=== PATIENT | female | born 1970 | race African-American/Black ===

== ENCOUNTER 2019-02-12 19:11 | Emergency (ER) | payer MEDICAID, OTHER ==
[~2019-02-12] VITALS: Ht 157.5 cm; Wt 65.5 kg
[~2019-02-12 19:11] MED LIST: CELEXA; NORCO 325 MG-7.1 TAB PO; TRAZODONE; ZIPRASIDONE
[2019-02-12 19:19] VITALS: BP 124/91; PULSE 95; TEMP 97.9
[2019-02-12] MEDS ORDERED: TRILEPTAL 150M150 MG PO ×2 (20:01→21:18)
[2019-02-12] MEDS ORDERED: NEURONTIN300 MG/CAP PO (20:02)
[2019-02-12] MEDS ORDERED: INDERAL 10MG10 MG PO ×2 (20:04→21:21)
[2019-02-12] MEDS ORDERED: COGENTIN 1MG1 MG/TAB PO ×2 (20:05→21:19)
[2019-02-12] MEDS ORDERED: FLONASEALLERGY NS (20:06)
[2019-02-12] MEDS ORDERED: CLARITIN 1010 MG/TAB PO (20:06)
[2019-02-12] MEDS ORDERED: VENTOLIN0.09 MG IH (20:07)
[2019-02-12] MEDS ORDERED: SINGULAIR 110 MG/TAB PO (20:07)
[2019-02-12] MEDS ORDERED: RT ADVAIR 128 DISKUS IH (20:08)
[2019-02-12 20:41] LABS: BASO % 0.6 % (0.0-2.0); EOS # 0.3 (0.0-0.7); EOS % 3.9 % (0-4.0); GRAN # 3.2 (1.4-6.5); GRAN % 50.9 % (42.2-75.2); LYMPH # 2.4 (1.2-3.4); LYMPH % 37.5 % (20.0-51.0); MEAN CELL VOLUME 80 fl (80.0-100.0); MEAN CORPUSCULAR HGB CONC 31 g/dl (33.0-37.0); MEAN PLATELET VOLUME 10.1 fl (7.4-10.4); MONO # 0.4 (0.1-0.6); MONO % 6.9 % (1.7-9.3); PLATELET COUNT 373 K/mm3 (130-400); RED BLOOD COUNT 3.76 M/mm3 (4.10-5.30); REDCELL DISTRIBUTION WIDTH-CV 16.6 % (11.5-14.5)
[2019-02-12 20:53] LABS: HEMATOCRIT 30.1 % (37.0-47.0); HEMOGLOBIN 9.4 g/dl (12.5-16.0); MEAN CORPUSCULAR HEMOGLOBIN 25 pg (27.0-31.0)
[2019-02-12 20:58] LABS: ALBUMIN 4.1 gm/dL (3.5-5.0); BILIRUBIN,TOTAL 0.2 mg/dL (0.0-1.0); CALCIUM 9.2 mg/dL (8.4-10.2); CREATININE, serum 0.69 (0.52-1.25); POTASSIUM 4.4 mmol/L (3.4-5.0); TOTAL PROTEIN 7.3 gm/dL (6.4-8.2)
[2019-02-12] MEDS ORDERED: CELEXA 20MG20 MG/TAB PO (21:19)
[2019-02-13] MEDS ORDERED: NEURONTIN300 MG/CAP PO (07:22)
[2019-02-13] MEDS ORDERED: FLONASEALLERGY NS (07:22)
[2019-02-13] MEDS ORDERED: PRILOSEC 20MG20 MG PO (07:22)
[2019-02-13] MEDS ORDERED: AMOXICILLIN 50500 MG PO (07:22)
[2019-02-13] MEDS ORDERED: SINGULAIR 110 MG/TAB PO (07:22)
[2019-02-13] MEDS ORDERED: ZOFRAN ODT4 MG PO (07:27)
== END 2019-02-12 21:40 | disposition home or self-care (01) ==
LOC: COL.ER 19:11
PROVIDERS: Emergency Medicine
DX: G24.01 Drug induced subacute dyskinesia (principal); I10 Essential (primary) hypertension; J44.9 Chronic obstructive pulmonary disease, unspecified; M79.7 Fibromyalgia; F31.9 Bipolar disorder, unspecified; F25.9 Schizoaffective disorder, unspecified; F17.210 Nicotine dependence, cigarettes, uncomplicated; Z79.51 Long term (current) use of inhaled steroids; Z90.89 Acquired absence of other organs; Z98.51 Tubal ligation status

== ENCOUNTER 2019-02-13 06:49 | Emergency (ER) | payer MEDICAID, OTHER ==
[~2019-02-13] VITALS: Ht 157.5 cm; Wt 65.9 kg
[~2019-02-13 06:49] MED LIST changes: +CELEXA 20MG20 MG/TAB PO; +CLARITIN 1010 MG/TAB PO; +COGENTIN 1MG1 MG/TAB PO; +FLONASEALLERGY NS; +INDERAL 10MG10 MG PO; +NEURONTIN300 MG/CAP PO; +RT ADVAIR 128 DISKUS IH; +SINGULAIR 110 MG/TAB PO; +TRILEPTAL 150M150 MG PO; +VENTOLIN0.09 MG IH
[2019-02-13 06:54] VITALS: BP 145/77; TEMP 97.5
[2019-02-13] MEDS ORDERED: PRILOSEC 20MG20 MG PO (07:22)
[2019-02-13] MEDS ORDERED: AMOXICILLIN 50500 MG PO (07:22)
[2019-02-13] MEDS ORDERED: NEURONTIN300 MG/CAP PO (07:22)
[2019-02-13] MEDS ORDERED: FLONASEALLERGY NS (07:22)
[2019-02-13] MEDS ORDERED: SINGULAIR 110 MG/TAB PO (07:22)
[2019-02-13] MEDS ORDERED: ZOFRAN ODT4 MG PO (07:27)
[2019-02-13 08:00] VITALS: PULSE 76
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
== END 2019-02-13 08:40 | disposition home or self-care (01) ==
LOC: COL.ER 06:49
DX: K02.9 Dental caries, unspecified (principal); Z98.84 Bariatric surgery status; Z88.8 Allergy status to other drugs, medicaments and biological substances; Z79.51 Long term (current) use of inhaled steroids
CPT/HCPCS: J1200; J1885

== ENCOUNTER 2019-03-05 17:12 | Emergency (ER) | payer OTHER ==
[~2019-03-05] VITALS: Ht 157.5 cm; Wt 69.8 kg
[~2019-03-05 17:12] MED LIST changes: +AMOXICILLIN 50500 MG PO; +PRILOSEC 20MG20 MG PO; +ZOFRAN ODT4 MG PO
[2019-03-05 17:22] VITALS: TEMP 98
[2019-03-05] MEDS ORDERED: ZITHROMAX Z PA250 MG PO (21:36)
[2019-03-05 22:15] LABS: BASO % 0.4 % (0.0-2.0); EOS # 0.3 (0.0-0.7); EOS % 3.9 % (0-4.0); GRAN # 3.5 (1.4-6.5); GRAN % 50.4 % (42.2-75.2); HEMATOCRIT 34.7 % (37.0-47.0); HEMOGLOBIN 10.5 g/dl (12.5-16.0); LYMPH # 2.5 (1.2-3.4); LYMPH % 36.6 % (20.0-51.0); MEAN CELL VOLUME 84 fl (80.0-100.0); MEAN CORPUSCULAR HEMOGLOBIN 25 pg (27.0-31.0); MEAN CORPUSCULAR HGB CONC 30 g/dl (33.0-37.0); MONO # 0.6 (0.1-0.6); MONO % 8.4 % (1.7-9.3); PLATELET COUNT 376 K/mm3 (130-400); RED BLOOD COUNT 4.14 M/mm3 (4.10-5.30); REDCELL DISTRIBUTION WIDTH-CV 22.5 % (11.5-14.5)
[2019-03-05 22:27] LABS: ALANINE AMINOTRANSFERASE 33 U/L (9-52); ALBUMIN 4.1 gm/dL (3.5-5.0); ALKALINE PHOSPHATASE 68 U/L (50-136); ANION GAP 11 mmol/L (7-16); AST,SGOT 43 U/L (15-37); BILIRUBIN,TOTAL 0.2 mg/dL (0.0-1.0); BLOOD UREA NITROGEN 15 mg/dL (7-17); CARBON DIOXIDE 24 mmol/L (22-30); CHLORIDE 103 mmol/L (98-107); GLUCOSE 188 mg/dL (74-106); POTASSIUM 3.9 mmol/L (3.4-5.0); SODIUM 138 mmol/L (137-145); TOTAL PROTEIN 7.6 gm/dL (6.4-8.2)
[2019-03-05 22:42] LABS: TROPONIN-I < 0.012 ng/mL (0.000-0.035)
[2019-03-05 22:42] LABS: COLLECTION METHOD CLEAN CATCH
[2019-03-05 23:01] LABS: MUCOUS Present /lpf; PH 7 (5-8); SQUAMOUS EPITHELIAL 0-2 /hpf; URINE APPEARANCE Clear; URINE BACTERIA Occasional /hpf; URINE BILIRUBIN Negative (NEGATIVE); URINE BLOOD Negative (NEGATIVE); URINE COLOR Yellow; URINE GLUCOSE Negative (NEGATIVE); URINE KETONE Negative (NEGATIVE); URINE LEUKOCYTE ESTERASE Negative (NEGATIVE); URINE NITRATE Negative (NEGATIVE); URINE PROTEIN(semi-quant) Negative (NEGATIVE); URINE RBC 0-2 /hpf; URINE UROBILINOGEN Negative (NEGATIVE)
[2019-03-05 23:15] VITALS: BP 133/96; PULSE 90
--- NOTE | 2019-03-06 10:14 | NUR ---
Patient was seen on 03/05/19, in the hospital by our financial counselor and health care social worker (Yuliya). Patient confirmed she has not been successful in housing assistance and being seen by Sandra. On this date, patient contacts this health care social worker and worker stresses that patient needs to make an appointment at [facility] and establish a primary care provider there to have her numerous stated medical conditions evaluated and treated and also to receive prescriptions. Patient is tearful and her speech is difficult to understand. Worker filed an APS report #[id number]. Patient states she will take a cab to [facility].
== END 2019-03-05 23:35 | disposition home or self-care (01) ==
LOC: COL.ER 17:12
PROVIDERS: Family Medicine
DX: J18.1 Lobar pneumonia, unspecified organism (principal); M19.90 Unspecified osteoarthritis, unspecified site; Z98.84 Bariatric surgery status
CPT/HCPCS: J0696; J1200; J3010

== ENCOUNTER 2019-03-23 11:41 | Emergency (ER) | payer OTHER ==
[~2019-03-23] VITALS: Ht 157.5 cm; Wt 70.7 kg
[~2019-03-23 11:41] MED LIST changes: +ZITHROMAX Z PA250 MG PO
[2019-03-23 11:56] VITALS: BP 111/90; PULSE 82; TEMP 97.8
[2019-03-23 14:00] LABS: BASO % 0.6 % (0.0-2.0); EOS # 0.2 (0.0-0.7); EOS % 4.8 % (0-4.0); GRAN % 59.4 % (42.2-75.2); HEMATOCRIT 38.7 % (37.0-47.0); HEMOGLOBIN 11.7 g/dl (12.5-16.0); LYMPH # 1.5 (1.2-3.4); LYMPH % 30.6 % (20.0-51.0); MEAN CELL VOLUME 84 fl (80.0-100.0); MEAN CORPUSCULAR HEMOGLOBIN 25 pg (27.0-31.0); MEAN CORPUSCULAR HGB CONC 30 g/dl (33.0-37.0); MEAN PLATELET VOLUME 11.3 fl (7.4-10.4); MONO # 0.2 (0.1-0.6); MONO % 4.2 % (1.7-9.3); PLATELET COUNT 304 K/mm3 (130-400); RED BLOOD COUNT 4.61 M/mm3 (4.10-5.30); REDCELL DISTRIBUTION WIDTH-CV 21.9 % (11.5-14.5)
[2019-03-23 14:31] LABS: COLLECTION METHOD CLEAN CATCH
[2019-03-23 14:38] LABS: PH 7 (5-8); SQUAMOUS EPITHELIAL 0-2 /hpf; URINE APPEARANCE Clear; URINE BACTERIA None Seen /hpf; URINE BILIRUBIN Negative (NEGATIVE); URINE BLOOD Negative (NEGATIVE); URINE COLOR Yellow; URINE GLUCOSE Negative (NEGATIVE); URINE KETONE Negative (NEGATIVE); URINE LEUKOCYTE ESTERASE Negative (NEGATIVE); URINE NITRATE Negative (NEGATIVE); URINE PROTEIN(semi-quant) Negative (NEGATIVE); URINE RBC 0-2 /hpf; URINE UROBILINOGEN Negative (NEGATIVE)
[2019-03-23 15:07] LABS: ALANINE AMINOTRANSFERASE 51 U/L (9-52); ALBUMIN 4.2 gm/dL (3.5-5.0); ALKALINE PHOSPHATASE 68 U/L (50-136); ANION GAP 8 mmol/L (7-16); AST,SGOT 74 U/L (15-37); BILIRUBIN,TOTAL 0.3 mg/dL (0.0-1.0); BLOOD UREA NITROGEN 21 mg/dL (7-17); CALCIUM 9.1 mg/dL (8.4-10.2); CARBON DIOXIDE 27 mmol/L (22-30); CHLORIDE 105 mmol/L (98-107); CREATININE, serum 0.73 (0.52-1.25); GLUCOSE 93 mg/dL (74-106); SODIUM 140 mmol/L (137-145); TOTAL PROTEIN 7.5 gm/dL (6.4-8.2)
[2019-03-23 15:17] LABS: TROPONIN-I < 0.012 ng/mL (0.000-0.035)
== END 2019-03-23 14:30 | disposition left against medical advice (07) ==
LOC: COL.ER 11:41
PROVIDERS: Emergency Medicine; Nurse Practitioner
DX: L84 Corns and callosities (principal); M54.9 Dorsalgia, unspecified; R07.9 Chest pain, unspecified; R05 Cough; J45.909 Unspecified asthma, uncomplicated; I10 Essential (primary) hypertension; F32.9 Major depressive disorder, single episode, unspecified; K21.9 Gastro-esophageal reflux disease without esophagitis; F17.210 Nicotine dependence, cigarettes, uncomplicated
CPT/HCPCS: J1885

== ENCOUNTER 2019-05-29 12:53 | Emergency (ER) | payer OTHER ==
[~2019-05-29] VITALS: Ht 157.5 cm; Wt 72.6 kg
[2019-05-29 13:05] VITALS: TEMP 97
[2019-05-29] MEDS ORDERED: INDERAL 10MG10 MG (13:28)
[2019-05-29] MEDS ORDERED: COGENTIN 1MG1 MG/TAB (13:28)
[2019-05-29] MEDS ORDERED: CELEXA10 MG (13:31)
[2019-05-29] MEDS ORDERED: NEURONTIN300 MG/CAP PO ×2 (13:31→14:38)
[2019-05-29] MEDS ORDERED: FLONASE NASAL S16 GM NS (13:31)
[2019-05-29] MEDS ORDERED: SINGULAIR 110 MG/TAB PO (13:31)
[2019-05-29] MEDS ORDERED: ALBUTEROL S0.4 MG/ML PO (13:32)
[2019-05-29] MEDS ORDERED: TRILEPTAL 150M150 MG (13:38)
[2019-05-29 14:26] LABS: BASO % 0.5 % (0.0-2.0); EOS # 0.2 (0.0-0.7); EOS % 5.8 % (0-4.0); GRAN # 1.9 (1.4-6.5); GRAN % 47.5 % (42.2-75.2); HEMATOCRIT 37.5 % (37.0-47.0); HEMOGLOBIN 11.6 g/dl (12.5-16.0); LYMPH # 1.5 (1.2-3.4); LYMPH % 38.6 % (20.0-51.0); MEAN CELL VOLUME 86 fl (80.0-100.0); MEAN CORPUSCULAR HEMOGLOBIN 27 pg (27.0-31.0); MEAN CORPUSCULAR HGB CONC 31 g/dl (33.0-37.0); MEAN PLATELET VOLUME 10.9 fl (7.4-10.4); MONO # 0.3 (0.1-0.6); MONO % 7.3 % (1.7-9.3); PLATELET COUNT 241 K/mm3 (130-400); RED BLOOD COUNT 4.34 M/mm3 (4.10-5.30); REDCELL DISTRIBUTION WIDTH-CV 15.7 % (11.5-14.5)
[2019-05-29] MEDS ORDERED: TRILEPTAL 150M150 MG PO (14:37)
[2019-05-29] MEDS ORDERED: COGENTIN 1MG1 MG/TAB PO (14:37)
[2019-05-29] MEDS ORDERED: CELEXA 20MG20 MG/TAB PO (14:37)
[2019-05-29] MEDS ORDERED: INDERAL 10MG10 MG PO (14:37)
[2019-05-29 14:41] LABS: ALBUMIN 4.1 gm/dL (3.5-5.0); BILIRUBIN,TOTAL 0.4 mg/dL (0.0-1.0); CALCIUM 9.6 mg/dL (8.4-10.2); CREATININE, serum 0.56 (0.52-1.25); TOTAL PROTEIN 7.2 gm/dL (6.4-8.2)
[2019-05-29] MEDS ORDERED: NORCO 325 MG-51 TAB PO (14:51)
[2019-05-29 15:03] VITALS: BP 133/92; PULSE 66
== END 2019-05-29 15:03 | disposition home or self-care (01) ==
LOC: COL.ER 12:53
PROVIDERS: Emergency Medicine
DX: M54.12 Radiculopathy, cervical region (principal); I10 Essential (primary) hypertension; F32.9 Major depressive disorder, single episode, unspecified; Z88.6 Allergy status to analgesic agent; Z88.8 Allergy status to other drugs, medicaments and biological substances; Z98.84 Bariatric surgery status; Z91.14 Patient's other noncompliance with medication regimen; Z79.51 Long term (current) use of inhaled steroids

== ENCOUNTER 2019-06-06 02:46 | Emergency (ER) | payer MEDICAID ==
[~2019-06-06] VITALS: Ht 157.5 cm; Wt 75.9 kg
[~2019-06-06 02:46] MED LIST changes: +ALBUTEROL S0.4 MG/ML PO; +CELEXA10 MG; +COGENTIN 1MG1 MG/TAB; +FLONASE NASAL S16 GM NS; +INDERAL 10MG10 MG; +NORCO 325 MG-51 TAB PO; +TRILEPTAL 150M150 MG
[2019-06-06 02:51] VITALS: TEMP 97.4
[2019-06-06 03:41] LABS: BASO % 0.9 % (0.0-2.0); EOS # 0.4 (0.0-0.7); EOS % 7.9 % (0-4.0); GRAN # 1.6 (1.4-6.5); GRAN % 35.4 % (42.2-75.2); HEMOGLOBIN 10.7 g/dl (12.5-16.0); LYMPH # 2.1 (1.2-3.4); MEAN CELL VOLUME 85 fl (80.0-100.0); MEAN CORPUSCULAR HEMOGLOBIN 27 pg (27.0-31.0); MEAN CORPUSCULAR HGB CONC 32 g/dl (33.0-37.0); MEAN PLATELET VOLUME 10.1 fl (7.4-10.4); MONO # 0.4 (0.1-0.6); MONO % 8.6 % (1.7-9.3); PLATELET COUNT 244 K/mm3 (130-400); RED BLOOD COUNT 3.98 M/mm3 (4.10-5.30); REDCELL DISTRIBUTION WIDTH-CV 15.4 % (11.5-14.5)
[2019-06-06 03:49] LABS: HEMATOCRIT 33.7 % (37.0-47.0)
[2019-06-06 03:51] LABS: ALANINE AMINOTRANSFERASE 50 U/L (4-34); ALBUMIN 3.7 gm/dL (3.5-5.0); ALKALINE PHOSPHATASE 60 U/L (50-136); ANION GAP 6 mmol/L (7-16); AST,SGOT 54 U/L (15-37); BILIRUBIN,TOTAL 0.3 mg/dL (0.0-1.0); BLOOD UREA NITROGEN 10 mg/dL (7-17); CALCIUM 9.3 mg/dL (8.4-10.2); CARBON DIOXIDE 26 mmol/L (22-30); CHLORIDE 106 mmol/L (98-107); CREATININE, serum 0.68 (0.52-1.25); GLUCOSE 80 mg/dL (74-106); INR 0.9 (0.8-3.0); POTASSIUM 4.4 mmol/L (3.4-5.0); SODIUM 138 mmol/L (137-145); TOTAL PROTEIN 6.6 gm/dL (6.4-8.2)
[2019-06-06] MEDS ORDERED: PROAIR HFA0.09 MG/AC IH (04:01)
[2019-06-06 04:04] LABS: TROPONIN-I < 0.012 ng/mL (0.000-0.035)
[2019-06-06] MEDS ORDERED: INDERAL 10MG10 MG PO (04:04)
[2019-06-06 06:30] VITALS: BP 107/86; PULSE 76
[2019-06-07] MEDS ORDERED: FLEXERIL 1010 MG/TAB PO (12:29)
[2019-06-07] MEDS ORDERED: LIDODERM 5% PATC1 EA TP (12:29)
== END 2019-06-06 06:30 | disposition home or self-care (01) ==
LOC: COL.ER 02:46
PROVIDERS: Emergency Medicine
DX: R07.89 Other chest pain (principal); R10.10 Upper abdominal pain, unspecified; I10 Essential (primary) hypertension; J44.9 Chronic obstructive pulmonary disease, unspecified; M79.7 Fibromyalgia; F31.9 Bipolar disorder, unspecified; F20.9 Schizophrenia, unspecified; M19.012 Primary osteoarthritis, left shoulder; F17.210 Nicotine dependence, cigarettes, uncomplicated
CPT/HCPCS: C9113; J2270; J3010; J7030; Q9967

== ENCOUNTER 2019-11-29 13:30 | Emergency (ER) | payer MEDICAID ==
[~2019-11-29] VITALS: Ht 157.5 cm; Wt 68.2 kg
[~2019-11-29 13:30] MED LIST changes: +CALCIUM CARBON650 M2 PO; +FLEXERIL 1010 MG/TAB PO; +GOOD NEIGHBOR P1 CRE TP; +IRON TABLETS325 MG PO; +LIDODERM 5% PATC1 EA TP; +MELATONIN5 M1 SL; +METAMUCIL3.4 GM/DOS PO; +NATURAL MAGNES200 MG PO; +PRENATAL TABLET PO; +PRIL40 PO; +PROAIR HFA0.09 MG/AC IH; +TURMERIC500 MG PO
[2019-11-29 13:41] VITALS: TEMP 97
--- NOTE | 2019-11-29 14:24 | NUR ---
Director Process Engineering responded to consult in the ED for patient. HARESH collaborated with HARESH Stafford who advised patient had been signed up for Community Care Team at one point. HARESH met with patient who reports she has an apartment in [place] and provided address on facesheet. Patient states she is staying with her mother, Stefany Garza for right now. Patient reports her primary care physician is Nydia Russo at [facility]. HARESH Stafford sent email to Sonia, Patient Coordinator at [facility] to inquire about the last time patient was seen. Patient states she has an appointment coming up with a Dr. Stack at [facility] on the and states she has a Stem Roller Or Crusher Operator named Sherrie. Patient states she needs to see Dr. Ford because she needs to have her medications refilled. Patient states she normally gets her medications from [facility] in [facility] but today would like them sent to [facility]. Patient denies any issues obtaining her medications or paying for them. Patient reports she is here for tooth pain and states she has tooth decay. Patient reports she has an appointment next month at [facility]. HARESH contacted Adilia at [facility] who advised they tried to schedule an appointment with patient yesterday but patient didn't make one. HARESH scheduled an appointment for 12/24/19 @ [address] Marie for an extraction. Adilia advised they also have her on the cancellation list. HARESH contacted the [facility] and was advised patient has not been seen by Nydia Russo since July. Patient does have an appointment coming up on 12/11/19. HARESH provided update and appointments to Cade FRAZIER. No additional needs identified at this time, HARESH will continue to follow as needed.
[2019-11-29] MEDS ORDERED: PREDNISONE20 MG PO (15:10)
[2019-11-29] MEDS ORDERED: NEB MC (15:10)
[2019-11-29] MEDS ORDERED: AMOXICILLIN 8751 TAB PO (15:10)
[2019-11-29] MEDS ORDERED: ALBUTEROL0.83 MG/ML IH (15:10)
[2019-11-29] MEDS ORDERED: COGENTIN 1MG1 MG/TAB PO (15:12)
[2019-11-29] MEDS ORDERED: TRILEPTAL 150M150 MG PO ×2 (15:12)
[2019-11-29] MEDS ORDERED: INDERAL 10MG10 MG PO (15:12)
[2019-11-29 15:45] VITALS: BP 164/99; PULSE 67
--- NOTE | 2019-11-30 11:47 | NUR ---
Metal Extrusion Supervisor received follow up response from Qi at [facility]. Patient's case management services were discontinued due to non compliance.
== END 2019-11-29 15:45 | disposition home or self-care (01) ==
LOC: COL.ER 13:30
DX: K08.89 Other specified disorders of teeth and supporting structures (principal); J44.1 Chronic obstructive pulmonary disease with (acute) exacerbation; J98.11 Atelectasis; F17.210 Nicotine dependence, cigarettes, uncomplicated; F41.9 Anxiety disorder, unspecified; Z76.0 Encounter for issue of repeat prescription
CPT/HCPCS: J1885

== ENCOUNTER 2019-12-07 18:52 | Emergency (ER) | payer MEDICAID ==
[~2019-12-07] VITALS: Ht 157.5 cm; Wt 70.5 kg
[~2019-12-07 18:52] MED LIST changes: +ALBUTEROL0.83 MG/ML IH; +AMOXICILLIN 8751 TAB PO; +NEB MC; +PREDNISONE20 MG PO
[2019-12-07 21:26] LABS: COLLECTION METHOD CLEAN CATCH
[2019-12-07 21:28] LABS: BASO % 0.4 % (0.0-2.0); EOS % 0.7 % (0-4.0); GRAN # 3.8 (1.4-6.5); GRAN % 67.5 % (42.2-75.2); HEMOGLOBIN 11.1 g/dl (12.5-16.0); LYMPH # 1.4 (1.2-3.4); LYMPH % 25.4 % (20.0-51.0); MEAN CELL VOLUME 91 fl (80.0-100.0); MEAN CORPUSCULAR HEMOGLOBIN 29 pg (27.0-31.0); MEAN CORPUSCULAR HGB CONC 31 g/dl (33.0-37.0); MEAN PLATELET VOLUME 10.9 fl (7.4-10.4); MONO # 0.3 (0.1-0.6); MONO % 5.5 % (1.7-9.3); PLATELET COUNT 298 K/mm3 (130-400); REDCELL DISTRIBUTION WIDTH-CV 16.2 % (11.5-14.5)
[2019-12-07 21:33] LABS: MUCOUS Present /lpf; PH 6 (5-8); SQUAMOUS EPITHELIAL 0-2 /hpf; URINE APPEARANCE Hazy; URINE BACTERIA None Seen /hpf; URINE BILIRUBIN Negative (NEGATIVE); URINE BLOOD Negative (NEGATIVE); URINE COLOR Amber; URINE GLUCOSE Negative (NEGATIVE); URINE KETONE Negative (NEGATIVE); URINE LEUKOCYTE ESTERASE Negative (NEGATIVE); URINE NITRATE Positive (NEGATIVE); URINE PROTEIN(semi-quant) Negative (NEGATIVE); URINE RBC 0-2 /hpf
[2019-12-07 21:41] LABS: HEMATOCRIT 35.5 % (37.0-47.0)
[2019-12-07 21:43] LABS: ALANINE AMINOTRANSFERASE 52 U/L (4-34); ALBUMIN 4.1 gm/dL (3.5-5.0); ALKALINE PHOSPHATASE 64 U/L (50-136); ANION GAP 5 mmol/L (7-16); AST,SGOT 46 U/L (15-37); BILIRUBIN,TOTAL 0.4 mg/dL (0.0-1.0); BLOOD UREA NITROGEN 10 mg/dL (7-17); CALCIUM 8.2 mg/dL (8.4-10.2); CARBON DIOXIDE 29 mmol/L (22-30); CHLORIDE 106 mmol/L (98-107); CREATININE, serum 0.61 (0.52-1.25); GLUCOSE 97 mg/dL (74-106); LIPASE 100 U/L (23-300); POTASSIUM 4.3 mmol/L (3.4-5.0); SODIUM 139 mmol/L (137-145)
[2019-12-07 21:47] LABS: C-REACTIVE PROTEIN < 0.5 mg/dL (0.0-0.9)
[2019-12-07 22:00] LABS: TROPONIN-I < 0.012 ng/mL (0.000-0.035)
[2019-12-08 00:11] VITALS: BP 140/94; PULSE 77; TEMP 97.8
[2019-12-08] MEDS ORDERED: TESSALON PERLE200 MG PO (01:01)
== END 2019-12-08 00:58 | disposition home or self-care (01) ==
LOC: COL.ER 18:52
PROVIDERS: Emergency Medicine
DX: R05 Cough (principal); R07.9 Chest pain, unspecified; J45.909 Unspecified asthma, uncomplicated; J18.1 Lobar pneumonia, unspecified organism; F32.9 Major depressive disorder, single episode, unspecified; F17.210 Nicotine dependence, cigarettes, uncomplicated; Z20.828 Contact with and (suspected) exposure to other viral communicable diseases; Z79.51 Long term (current) use of inhaled steroids
CPT/HCPCS: J3010; J7030; Q9967

== ENCOUNTER 2019-12-10 19:41 | Emergency (ER) | payer MEDICAID ==
[~2019-12-10] VITALS: Ht 157.5 cm; Wt 77.2 kg
[~2019-12-10 19:41] MED LIST changes: +TESSALON PERLE200 MG PO
[2019-12-10 20:06] VITALS: TEMP 97.5
[2019-12-10 22:55] LABS: BASO # 0.1 (0.0-0.2); BASO % 0.7 % (0.0-2.0); EOS # 0.4 (0.0-0.7); EOS % 5.5 % (0-4.0); GRAN # 3.5 (1.4-6.5); GRAN % 51.5 % (42.2-75.2); HEMOGLOBIN 10.8 g/dl (12.5-16.0); LYMPH # 2.4 (1.2-3.4); LYMPH % 35.5 % (20.0-51.0); MEAN CELL VOLUME 89 fl (80.0-100.0); MEAN CORPUSCULAR HEMOGLOBIN 28 pg (27.0-31.0); MEAN CORPUSCULAR HGB CONC 32 g/dl (33.0-37.0); MEAN PLATELET VOLUME 11.1 fl (7.4-10.4); MONO # 0.5 (0.1-0.6); MONO % 6.7 % (1.7-9.3); PLATELET COUNT 307 K/mm3 (130-400); RED BLOOD COUNT 3.87 M/mm3 (4.10-5.30)
[2019-12-10 22:59] LABS: ALBUMIN 4.1 gm/dL (3.5-5.0); BILIRUBIN,TOTAL 0.4 mg/dL (0.0-1.0); CALCIUM 9.8 mg/dL (8.4-10.2); CREATININE, serum 0.69 (0.52-1.25); POTASSIUM 4.2 mmol/L (3.4-5.0)
[2019-12-10 23:10] LABS: HEMATOCRIT 34.3 % (37.0-47.0)
[2019-12-10 23:18] LABS: COLLECTION METHOD CLEAN CATCH
[2019-12-10 23:23] LABS: PH 5 (5-8); SQUAMOUS EPITHELIAL 0-2 /hpf; URINE APPEARANCE Hazy; URINE BACTERIA None Seen /hpf; URINE BILIRUBIN Negative (NEGATIVE); URINE BLOOD Negative (NEGATIVE); URINE COLOR Yellow; URINE GLUCOSE Negative (NEGATIVE); URINE KETONE Negative (NEGATIVE); URINE LEUKOCYTE ESTERASE Negative (NEGATIVE); URINE NITRATE Negative (NEGATIVE); URINE PROTEIN(semi-quant) Negative (NEGATIVE); URINE RBC 0-2 /hpf; URINE UROBILINOGEN Negative (NEGATIVE)
[2019-12-10] MEDS ORDERED: DOXYCYCLINE 10100 MG PO (23:45)
[2019-12-10] MEDS ORDERED: ZOFRAN 4MG T4 MG/TAB PO (23:46)
[2019-12-11 00:44] VITALS: BP 142/85; PULSE 60
== END 2019-12-11 00:44 | disposition home or self-care (01) ==
LOC: COL.ER 19:41
PROVIDERS: Emergency Medicine
DX: N89.8 Other specified noninflammatory disorders of vagina (principal); F45.0 Somatization disorder; Z32.02 Encounter for pregnancy test, result negative; Z98.84 Bariatric surgery status; Z88.8 Allergy status to other drugs, medicaments and biological substances
CPT/HCPCS: J0696

== ENCOUNTER 2020-01-24 14:29 | Emergency (ER) | payer MEDICAID ==
[~2020-01-24] VITALS: Ht 157.5 cm; Wt 68.2 kg
[~2020-01-24 14:29] MED LIST changes: +DOXYCYCLINE 10100 MG PO; +ZOFRAN 4MG T4 MG/TAB PO
[2020-01-24 14:51] VITALS: TEMP 97.8
[2020-01-24 17:13] LABS: COLLECTION METHOD CLEAN CATCH
[2020-01-24 17:20] LABS: PH 7 (5-8); URINE APPEARANCE Clear; URINE BACTERIA None Seen /hpf; URINE BILIRUBIN Negative (NEGATIVE); URINE BLOOD Negative (NEGATIVE); URINE COLOR Straw; URINE GLUCOSE Negative (NEGATIVE); URINE KETONE Negative (NEGATIVE); URINE LEUKOCYTE ESTERASE Negative (NEGATIVE); URINE NITRATE Negative (NEGATIVE); URINE PROTEIN(semi-quant) Negative (NEGATIVE); URINE RBC 0-2 /hpf; URINE UROBILINOGEN Negative (NEGATIVE)
[2020-01-24] MEDS ORDERED: ANTIVERT 25MG25 MG PO (17:39)
[2020-01-24 17:40] LABS: HEMATOCRIT 38.9 % (37.0-47.0); HEMOGLOBIN 12.3 g/dl (12.5-16.0); MEAN CELL VOLUME 90 fl (80.0-100.0); MEAN CORPUSCULAR HEMOGLOBIN 29 pg (27.0-31.0); MEAN CORPUSCULAR HGB CONC 32 g/dl (33.0-37.0); MEAN PLATELET VOLUME 11.8 fl (7.4-10.4); PLATELET COUNT 218 K/mm3 (130-400); RED BLOOD COUNT 4.31 M/mm3 (4.10-5.30); REDCELL DISTRIBUTION WIDTH-CV 14.5 % (11.5-14.5)
[2020-01-24 17:49] VITALS: BP 157/93
[2020-01-24 17:49] LABS: ALANINE AMINOTRANSFERASE 43 U/L (4-34); ALBUMIN 4.4 gm/dL (3.5-5.0); ALKALINE PHOSPHATASE 63 U/L (50-136); ANION GAP 5 mmol/L (7-16); AST,SGOT 45 U/L (15-37); BILIRUBIN,TOTAL 0.5 mg/dL (0.0-1.0); BLOOD UREA NITROGEN 15 mg/dL (7-17); CALCIUM 9.2 mg/dL (8.4-10.2); CARBON DIOXIDE 27 mmol/L (22-30); CHLORIDE 106 mmol/L (98-107); CREATININE, serum 0.68 (0.52-1.25); GLUCOSE 78 mg/dL (74-106); POTASSIUM 4.6 mmol/L (3.4-5.0); SODIUM 138 mmol/L (137-145); TOTAL PROTEIN 7.6 gm/dL (6.4-8.2)
[2020-01-24 17:57] LABS: C-REACTIVE PROTEIN < 0.5 mg/dL (0.0-0.9)
[2020-01-24 17:59] LABS: TROPONIN-I < 0.012 ng/mL (0.000-0.035)
[2020-01-24] MEDS ORDERED: FLEXERIL 1010 MG/TAB PO (18:35)
[2020-01-24 18:51] LABS: EOSINOPHIL 5 % (0-4); LYMPHOCYTE 36 % (20.0-51.0); NEUTROPHILS 50 % (42.0-75.2)
[2020-01-24 18:52] LABS: HYPOCHROMIA 2+
[2020-01-24 18:53] LABS: PLATELET ESTIMATE NORMAL (NORMAL)
[2020-01-24 19:07] VITALS: PULSE 59
== END 2020-01-24 19:07 | disposition home or self-care (01) ==
LOC: COL.ER 14:29
PROVIDERS: Emergency Medicine
DX: R42 Dizziness and giddiness (principal); F45.0 Somatization disorder; F17.200 Nicotine dependence, unspecified, uncomplicated; Z98.84 Bariatric surgery status; Z88.8 Allergy status to other drugs, medicaments and biological substances
CPT/HCPCS: J2060; J2405; J7030

== ENCOUNTER 2020-01-28 06:21 | Emergency (ER) | payer MEDICAID ==
[~2020-01-28] VITALS: Ht 157.5 cm; Wt 79.5 kg
[~2020-01-28 06:21] MED LIST changes: +ANTIVERT 25MG25 MG PO
[2020-01-28 06:25] VITALS: TEMP 97.7
[2020-01-28 07:55] LABS: BASO % 0.7 % (0.0-2.0); EOS # 0.4 (0.0-0.7); EOS % 6.6 % (0-4.0); GRAN # 3.1 (1.4-6.5); GRAN % 53.5 % (42.2-75.2); HEMOGLOBIN 11.5 g/dl (12.5-16.0); LYMPH # 1.8 (1.2-3.4); LYMPH % 30.7 % (20.0-51.0); MEAN CELL VOLUME 88 fl (80.0-100.0); MEAN CORPUSCULAR HEMOGLOBIN 28 pg (27.0-31.0); MEAN CORPUSCULAR HGB CONC 32 g/dl (33.0-37.0); MEAN PLATELET VOLUME 11.2 fl (7.4-10.4); MONO # 0.5 (0.1-0.6); MONO % 8.3 % (1.7-9.3); PLATELET COUNT 238 K/mm3 (130-400); RED BLOOD COUNT 4.08 M/mm3 (4.10-5.30); REDCELL DISTRIBUTION WIDTH-CV 14.5 % (11.5-14.5)
[2020-01-28 07:56] LABS: HEMATOCRIT 35.8 % (37.0-47.0)
[2020-01-28 08:10] LABS: ALANINE AMINOTRANSFERASE 34 U/L (4-34); ALBUMIN 4.3 gm/dL (3.5-5.0); ALKALINE PHOSPHATASE 60 U/L (50-136); ANION GAP 5 mmol/L (7-16); AST,SGOT 39 U/L (15-37); BILIRUBIN,TOTAL 0.4 mg/dL (0.0-1.0); BLOOD UREA NITROGEN 19 mg/dL (7-17); CALCIUM 9.4 mg/dL (8.4-10.2); CARBON DIOXIDE 27 mmol/L (22-30); CHLORIDE 105 mmol/L (98-107); CREATININE, serum 0.73 (0.52-1.25); GLUCOSE 86 mg/dL (74-106); LIPASE 69 U/L (23-300); MAGNESIUM 2.1 mg/dL (1.6-2.3); POTASSIUM 4.2 mmol/L (3.4-5.0); SODIUM 137 mmol/L (137-145); TOTAL PROTEIN 7.3 gm/dL (6.4-8.2)
[2020-01-28 08:14] LABS: ACETAMINOPHEN < 10 ug/mL (10-30); ALCOHOL(ethanol),MEDICAL < 10 mg/dL; C-REACTIVE PROTEIN < 0.5 mg/dL (0.0-0.9)
[2020-01-28 10:03] LABS: COLLECTION METHOD CLEAN CATCH
[2020-01-28 10:22] LABS: PH 7 (5-8); SQUAMOUS EPITHELIAL None Seen /hpf; URINE APPEARANCE Clear; URINE BACTERIA None Seen /hpf; URINE BILIRUBIN Negative (NEGATIVE); URINE BLOOD Negative (NEGATIVE); URINE COLOR Straw; URINE GLUCOSE Negative (NEGATIVE); URINE KETONE Negative (NEGATIVE); URINE LEUKOCYTE ESTERASE Negative (NEGATIVE); URINE NITRATE Negative (NEGATIVE); URINE PROTEIN(semi-quant) Negative (NEGATIVE); URINE RBC 0-2 /hpf; URINE UROBILINOGEN Negative (NEGATIVE)
[2020-01-28 11:18] VITALS: BP 115/68; PULSE 63
== END 2020-01-28 12:20 | disposition home or self-care (01) ==
LOC: COL.ER 06:21
PROVIDERS: Emergency Medicine
DX: R10.2 Pelvic and perineal pain (principal); F41.9 Anxiety disorder, unspecified; M79.7 Fibromyalgia; Z90.49 Acquired absence of other specified parts of digestive tract; Z88.8 Allergy status to other drugs, medicaments and biological substances
CPT/HCPCS: J3010

== ENCOUNTER 2020-01-30 11:30 | Emergency (ER) | payer MEDICAID ==
[~2020-01-30] VITALS: Ht 157.5 cm; Wt 78.2 kg
[2020-01-30 11:36] VITALS: TEMP 96.9
[2020-01-30 12:45] VITALS: BP 137/80; PULSE 88
[2020-01-30 12:46] LABS: BASO % 0.6 % (0.0-2.0); EOS # 0.3 (0.0-0.7); EOS % 6.4 % (0-4.0); GRAN # 2.9 (1.4-6.5); GRAN % 56.6 % (42.2-75.2); HEMATOCRIT 39.5 % (37.0-47.0); HEMOGLOBIN 12.6 g/dl (12.5-16.0); LYMPH # 1.5 (1.2-3.4); MEAN CELL VOLUME 89 fl (80.0-100.0); MEAN CORPUSCULAR HEMOGLOBIN 28 pg (27.0-31.0); MEAN CORPUSCULAR HGB CONC 32 g/dl (33.0-37.0); MEAN PLATELET VOLUME 11.5 fl (7.4-10.4); MONO # 0.4 (0.1-0.6); PLATELET COUNT 236 K/mm3 (130-400); RED BLOOD COUNT 4.46 M/mm3 (4.10-5.30); REDCELL DISTRIBUTION WIDTH-CV 14.1 % (11.5-14.5)
[2020-01-30 13:00] LABS: ALANINE AMINOTRANSFERASE 37 U/L (4-34); ALBUMIN 4.6 gm/dL (3.5-5.0); ALKALINE PHOSPHATASE 71 U/L (50-136); ANION GAP 6 mmol/L (7-16); AST,SGOT 48 U/L (15-37); BILIRUBIN,TOTAL 0.8 mg/dL (0.0-1.0); BLOOD UREA NITROGEN 14 mg/dL (7-17); CALCIUM 9.8 mg/dL (8.4-10.2); CARBON DIOXIDE 29 mmol/L (22-30); CHLORIDE 103 mmol/L (98-107); GLUCOSE 90 mg/dL (74-106); POTASSIUM 4.1 mmol/L (3.4-5.0); SODIUM 138 mmol/L (137-145)
[2020-01-30 13:07] LABS: C-REACTIVE PROTEIN < 0.5 mg/dL (0.0-0.9)
--- NOTE | 2020-01-30 14:17 | NUR ---
HARESH responded to consult and met with the patient. The patient presented to the ED with pelvic pain and recent falls. She was eating her lunch. During intake, the patient's speech was erratic. The patient states that she has been dizzy lately and having some falls. The patient was seen in the ED in November and she had an appointment with her provider, Nydia Russo, at [facility] on 12/10. The patient states that she did go to this appointment, but that she does not like Nydia Russo. She states that she wants a new provider and set up with one soon, so that she can be connected to her specialists. The patient states that no one takes her Medicaid [employer] and that she still not not have an I.D. The patient states that she would have to make an appointment at the [facility] and that she does not want to wait for one. HARESH then stepped out of the patient's room to update her RN and to contact the different clinics for a new provider. The patient then asked her RN and provider for her discharge paperwork and wanted to leave. HARESH had contacted [facility]. They do not take the patient's insurance. HARESH contacted [facility]. The retail center receptionist at [facility] reports that they do take the patient's insurance and transferred HARESH to Dr. Jordan's RN. HARESH left her a voicemail. The patient was waiting in the hallway. HARESH met with the patient to update. The patient states that HARESH can contact her with the appointment. She states her phone number is [phone]. The patient then informed HARESH that she feels like her food is not going down and that she is dizzy. HARESH notified the patient's RN and the PA. The patient's RN and the PA offered the patient to return to her room and to continue her treatment. The RN informed her how they could give her a Zofran. The patient then asked if she could get a pain pill and a prescription for pain pills. The RN and PA informed the patient that she would not be getting a pain pill or a prescription for one. The patient refused the Zofran and wanted to leave. HARESH made an APS report. Intake ID#[id number].
== END 2020-01-30 13:46 | disposition home or self-care (01) ==
LOC: COL.ER 11:30
PROVIDERS: Physician Assistant
DX: R10.2 Pelvic and perineal pain (principal); R42 Dizziness and giddiness; G89.29 Other chronic pain; F31.9 Bipolar disorder, unspecified; F41.9 Anxiety disorder, unspecified; F17.200 Nicotine dependence, unspecified, uncomplicated; Z90.49 Acquired absence of other specified parts of digestive tract; Z98.84 Bariatric surgery status; Z91.81 History of falling; Z88.8 Allergy status to other drugs, medicaments and biological substances; Z79.899 Other long term (current) drug therapy

== ENCOUNTER 2020-05-15 09:01 | Emergency (ER) | payer MEDICAID ==
[~2020-05-15] VITALS: Ht 157.5 cm; Wt 77.3 kg
[2020-05-15 10:27] LABS: BASO % 0.9 % (0.0-2.0); EOS # 0.2 (0.0-0.7); EOS % 4.9 % (0-4.0); GRAN # 2.2 (1.4-6.5); LYMPH # 1.7 (1.2-3.4); LYMPH % 38.1 % (20.0-51.0); MEAN CELL VOLUME 88 fl (80.0-100.0); MEAN CORPUSCULAR HGB CONC 32 g/dl (33.0-37.0); MEAN PLATELET VOLUME 10.1 fl (7.4-10.4); MONO # 0.3 (0.1-0.6); MONO % 7.1 % (1.7-9.3); PLATELET COUNT 318 K/mm3 (130-400); RED BLOOD COUNT 3.53 M/mm3 (4.10-5.30); REDCELL DISTRIBUTION WIDTH-CV 15.3 % (11.5-14.5)
[2020-05-15 10:29] LABS: HEMOGLOBIN 9.8 g/dl (12.5-16.0); MEAN CORPUSCULAR HEMOGLOBIN 28 pg (27.0-31.0)
[2020-05-15 10:32] LABS: ALANINE AMINOTRANSFERASE 14 U/L (4-34); ALBUMIN 3.3 gm/dL (3.5-5.0); ALKALINE PHOSPHATASE 57 U/L (50-136); ANION GAP 4 mmol/L (7-16); AST,SGOT 29 U/L (15-37); BILIRUBIN,TOTAL 0.3 mg/dL (0.0-1.0); BLOOD UREA NITROGEN 15 mg/dL (7-17); CALCIUM 8.6 mg/dL (8.4-10.2); CARBON DIOXIDE 25 mmol/L (22-30); CHLORIDE 107 mmol/L (98-107); CREATININE, serum 0.81 (0.52-1.25); GLUCOSE 99 mg/dL (74-106); LIPASE 120 U/L (23-300); POTASSIUM 4.3 mmol/L (3.4-5.0); SODIUM 137 mmol/L (137-145); TOTAL PROTEIN 6.1 gm/dL (6.4-8.2)
[2020-05-15 10:56] LABS: TROPONIN-I < 0.012 ng/mL (0.000-0.035)
[2020-05-15] MEDS ORDERED: ULTRAM 50MG TAB50 MG PO (11:26)
[2020-05-15] MEDS ORDERED: PROAIR HFA0.09 MG/AC IH (11:26)
[2020-05-15] MEDS ORDERED: SINGULAIR 110 MG/TAB PO (11:26)
[2020-05-15] MEDS ORDERED: AMOXICILLIN 8751 TAB PO (11:31)
[2020-05-15 11:38] VITALS: BP 129/83; PULSE 76; TEMP 97.8
== END 2020-05-15 11:38 | disposition home or self-care (01) ==
LOC: COL.ER 09:01
PROVIDERS: Emergency Medicine
DX: R07.81 Pleurodynia (principal); K04.7 Periapical abscess without sinus; J44.9 Chronic obstructive pulmonary disease, unspecified; F41.9 Anxiety disorder, unspecified; M79.7 Fibromyalgia; Z20.822 Contact with and (suspected) exposure to COVID-19; Z88.8 Allergy status to other drugs, medicaments and biological substances; Z79.52 Long term (current) use of systemic steroids
CPT/HCPCS: A9284; J1885

== ENCOUNTER 2020-05-21 08:51 | Emergency (ER) | payer MEDICAID ==
[~2020-05-21] VITALS: Ht 157.5 cm; Wt 77.3 kg
[~2020-05-21 08:51] MED LIST changes: +ULTRAM 50MG TAB50 MG PO
[2020-05-21 08:58] VITALS: TEMP 97.2
[2020-05-21 09:35] LABS: BASO % 0.9 % (0.0-2.0); EOS # 0.3 (0.0-0.7); EOS % 5.8 % (0-4.0); GRAN # 2.1 (1.4-6.5); LYMPH # 1.6 (1.2-3.4); LYMPH % 36.2 % (20.0-51.0); MEAN CELL VOLUME 89 fl (80.0-100.0); MEAN CORPUSCULAR HGB CONC 31 g/dl (33.0-37.0); MEAN PLATELET VOLUME 10.2 fl (7.4-10.4); MONO # 0.5 (0.1-0.6); MONO % 10.9 % (1.7-9.3); PLATELET COUNT 328 K/mm3 (130-400); RED BLOOD COUNT 3.53 M/mm3 (4.10-5.30); REDCELL DISTRIBUTION WIDTH-CV 15.6 % (11.5-14.5)
[2020-05-21 09:38] LABS: HEMATOCRIT 31.4 % (37.0-47.0); HEMOGLOBIN 9.8 g/dl (12.5-16.0); MEAN CORPUSCULAR HEMOGLOBIN 28 pg (27.0-31.0)
[2020-05-21 09:46] LABS: ALANINE AMINOTRANSFERASE 16 U/L (4-34); ALBUMIN 3.5 gm/dL (3.5-5.0); ALKALINE PHOSPHATASE 54 U/L (50-136); ANION GAP 6 mmol/L (7-16); AST,SGOT 47 U/L (15-37); BILIRUBIN,TOTAL 0.4 mg/dL (0.0-1.0); BLOOD UREA NITROGEN 12 mg/dL (7-17); CALCIUM 8.9 mg/dL (8.4-10.2); CARBON DIOXIDE 25 mmol/L (22-30); CHLORIDE 107 mmol/L (98-107); CREATININE, serum 0.65 (0.52-1.25); GLUCOSE 95 mg/dL (74-106); POTASSIUM 3.9 mmol/L (3.4-5.0); SODIUM 138 mmol/L (137-145); TOTAL PROTEIN 6.3 gm/dL (6.4-8.2)
[2020-05-21 10:06] LABS: TROPONIN-I < 0.012 ng/mL (0.000-0.035)
[2020-05-21 10:17] VITALS: BP 175/114; PULSE 70
[2020-05-21] MEDS ORDERED: ZOFRAN ODT4 MG PO (10:31)
== END 2020-05-21 10:21 | disposition home or self-care (01) ==
LOC: COL.ER 08:51
PROVIDERS: Emergency Medicine
DX: R07.81 Pleurodynia (principal); J44.9 Chronic obstructive pulmonary disease, unspecified; M79.7 Fibromyalgia; F41.9 Anxiety disorder, unspecified; Z88.8 Allergy status to other drugs, medicaments and biological substances; Z79.52 Long term (current) use of systemic steroids

== ENCOUNTER 2020-07-28 15:21 | Emergency (ER) | payer MEDICAID ==
[~2020-07-28] VITALS: Ht 157.5 cm; Wt 72.2 kg
[2020-07-28 15:48] VITALS: BP 154/99; PULSE 109; TEMP 98.7
== END 2020-07-28 16:54 | disposition left against medical advice (07) ==
LOC: COL.ER 15:21
DX: F39 Unspecified mood [affective] disorder (principal); F04 Amnestic disorder due to known physiological condition; F45.21 Hypochondriasis; Z88.8 Allergy status to other drugs, medicaments and biological substances

== ENCOUNTER 2020-08-30 23:02 | Emergency (ER) | payer MEDICAID ==
[~2020-08-30] VITALS: Ht 157.5 cm; Wt 75.0 kg
[2020-08-30 23:08] VITALS: TEMP 98.5
[2020-08-30 23:49] LABS: COLLECTION METHOD CLEAN CATCH
[2020-08-30 23:56] LABS: BASO % 0.6 % (0.0-2.0); EOS # 0.4 (0.0-0.7); EOS % 7.6 % (0-4.0); GRAN # 2.6 (1.4-6.5); GRAN % 49.4 % (42.2-75.2); HEMOGLOBIN 10.3 g/dl (12.5-16.0); LYMPH # 1.9 (1.2-3.4); LYMPH % 36.5 % (20.0-51.0); MEAN CELL VOLUME 85 fl (80.0-100.0); MEAN CORPUSCULAR HEMOGLOBIN 27 pg (27.0-31.0); MEAN CORPUSCULAR HGB CONC 31 g/dl (33.0-37.0); MEAN PLATELET VOLUME 10.4 fl (7.4-10.4); MONO # 0.3 (0.1-0.6); MONO % 5.7 % (1.7-9.3); PLATELET COUNT 261 K/mm3 (130-400); RED BLOOD COUNT 3.87 M/mm3 (4.10-5.30); REDCELL DISTRIBUTION WIDTH-CV 19.3 % (11.5-14.5)
[2020-08-30 23:58] LABS: HEMATOCRIT 32.9 % (37.0-47.0)
[2020-08-30 23:59] LABS: MUCOUS Present /lpf; PH 5 (5-8); SQUAMOUS EPITHELIAL None Seen /hpf; URINE APPEARANCE Hazy; URINE BACTERIA None Seen /hpf; URINE BILIRUBIN Negative (NEGATIVE); URINE BLOOD Negative (NEGATIVE); URINE COLOR Yellow; URINE GLUCOSE Negative (NEGATIVE); URINE KETONE Negative (NEGATIVE); URINE LEUKOCYTE ESTERASE Negative (NEGATIVE); URINE NITRATE Negative (NEGATIVE); URINE PROTEIN(semi-quant) Negative (NEGATIVE); URINE RBC 0-2 /hpf; URINE UROBILINOGEN Negative (NEGATIVE)
[2020-08-31 00:04] LABS: ALANINE AMINOTRANSFERASE 37 U/L (4-34); ALBUMIN 3.6 gm/dL (3.5-5.0); ALKALINE PHOSPHATASE 46 U/L (50-136); ANION GAP 2 mmol/L (7-16); AST,SGOT 41 U/L (15-37); BILIRUBIN,TOTAL 0.3 mg/dL (0.0-1.0); BLOOD UREA NITROGEN 14 mg/dL (7-17); C-REACTIVE PROTEIN < 0.5 mg/dL (0.0-0.9); CARBON DIOXIDE 27 mmol/L (22-30); CHLORIDE 107 mmol/L (98-107); CREATININE, serum 0.62 (0.52-1.25); GLUCOSE 97 mg/dL (74-106); LIPASE 107 U/L (23-300); POTASSIUM 4.4 mmol/L (3.4-5.0); SODIUM 136 mmol/L (137-145); TOTAL PROTEIN 6.6 gm/dL (6.4-8.2)
[2020-08-31 00:07] LABS: INR 0.9 (0.8-3.0); PROTHROMBIN TIME 10.3 SECONDS (9.7-12.8)
[2020-08-31 00:27] LABS: TROPONIN-I < 0.012 ng/mL (0.000-0.035)
[2020-08-31 00:50] VITALS: BP 134/77; PULSE 77
== END 2020-08-31 00:50 | disposition home or self-care (01) ==
LOC: COL.ER 23:02
PROVIDERS: Nurse Practitioner Primary Care
DX: R07.89 Other chest pain (principal); R51.9 Headache, unspecified; R10.9 Unspecified abdominal pain; I10 Essential (primary) hypertension; K21.9 Gastro-esophageal reflux disease without esophagitis; R11.0 Nausea; F25.9 Schizoaffective disorder, unspecified; F17.210 Nicotine dependence, cigarettes, uncomplicated; Z87.442 Personal history of urinary calculi; Z88.8 Allergy status to other drugs, medicaments and biological substances; Z79.899 Other long term (current) drug therapy

== ENCOUNTER 2020-09-03 22:11 | Observation (INO) | payer MEDICAID ==
[~2020-09-03] VITALS: Ht 157.5 cm; Wt 77.3 kg
[2020-09-03 23:19] LABS: BASO % 0.3 % (0.0-2.0); EOS # 0.3 (0.0-0.7); EOS % 2.8 % (0-4.0); GRAN # 8.4 (1.4-6.5); HEMOGLOBIN 11.2 g/dl (12.5-16.0); LYMPH # 2.1 (1.2-3.4); LYMPH % 18.2 % (20.0-51.0); MEAN CELL VOLUME 85 fl (80.0-100.0); MEAN CORPUSCULAR HEMOGLOBIN 26 pg (27.0-31.0); MEAN CORPUSCULAR HGB CONC 31 g/dl (33.0-37.0); MEAN PLATELET VOLUME 9.7 fl (7.4-10.4); MONO # 0.6 (0.1-0.6); MONO % 5.4 % (1.7-9.3); PLATELET COUNT 292 K/mm3 (130-400); RED BLOOD COUNT 4.27 M/mm3 (4.10-5.30); REDCELL DISTRIBUTION WIDTH-CV 19.7 % (11.5-14.5)
[2020-09-03 23:21] LABS: HEMATOCRIT 36.3 % (37.0-47.0)
[2020-09-03 23:34] LABS: ALANINE AMINOTRANSFERASE 56 U/L (4-34); ALBUMIN 4.4 gm/dL (3.5-5.0); ALKALINE PHOSPHATASE 65 U/L (50-136); ANION GAP 3 mmol/L (7-16); AST,SGOT 84 U/L (15-37); BILIRUBIN,TOTAL 0.7 mg/dL (0.0-1.0); BLOOD UREA NITROGEN 9 mg/dL (7-17); C-REACTIVE PROTEIN 2.9 mg/dL (0.0-0.9); CALCIUM 9.4 mg/dL (8.4-10.2); CARBON DIOXIDE 31 mmol/L (22-30); CHLORIDE 104 mmol/L (98-107); CREATININE, serum 0.73 (0.52-1.25); GLUCOSE 93 mg/dL (74-106); LIPASE 80 U/L (23-300); POTASSIUM 4.2 mmol/L (3.4-5.0); SODIUM 138 mmol/L (137-145)
[2020-09-03 23:35] LABS: COLLECTION METHOD CLEAN CATCH
[2020-09-03 23:41] LABS: PH 7 (5-8); SQUAMOUS EPITHELIAL 0-2 /hpf; URINE APPEARANCE Clear; URINE BACTERIA None Seen /hpf; URINE BILIRUBIN Negative (NEGATIVE); URINE BLOOD Negative (NEGATIVE); URINE COLOR Yellow; URINE GLUCOSE Negative (NEGATIVE); URINE KETONE Negative (NEGATIVE); URINE LEUKOCYTE ESTERASE Negative (NEGATIVE); URINE NITRATE Negative (NEGATIVE); URINE PROTEIN(semi-quant) Negative (NEGATIVE); URINE RBC 0-2 /hpf; URINE UROBILINOGEN Negative (NEGATIVE)
[2020-09-04 00:04] LABS: TROPONIN-I < 0.012 ng/mL (0.000-0.035)
[2020-09-04] MEDS ORDERED: 00186-0370-20 IH (08:34)
[2020-09-04] MEDS ORDERED: COLACE 100100 MG/CAP PO (08:34)
[2020-09-04] MEDS ORDERED: CYMBALTA 30MG30 MG PO (08:35)
[2020-09-04] MEDS ORDERED: INDERAL40 MG PO (08:36)
[2020-09-04] MEDS ORDERED: PROTONIX 40MG T40 MG PO (08:36)
[2020-09-04 09:00] VITALS: BP 142/88; PULSE 65; TEMP 98.8
--- NOTE | 2020-09-04 09:39 | NUR ---
Upon entering room pt appeared to be trying to hide something. Her IV pump was on standby and her IV fluids were unhooked. Pt also asking something to drink which I told her right now she is not to have anything to eat or drink. I also saw a water bottle in her bag on her lap. Told her she can't have what is in the water bottle. She stated, "well it is just water." I again said that she is not to have anything to eat or drink at this time. She got very upset again regarding this. Having complaints of stomach pain and a headache.
--- NOTE | 2020-09-04 10:56 | NUR ---
Discussed pt with Dr Moran, received an order for her to have regular diet. Informed pt of this and food ordered
[2020-09-04 11:14] VITALS: BP 142/90; PULSE 77; TEMP 98
--- NOTE | 2020-09-04 12:00 | NUR ---
Pt has been very restless in the room. She does often have something with her that she will then put in a personal belonging bag quickly when we enter the room. Pt did get something to eat and reports feeling better.
--- NOTE | 2020-09-04 15:21 | NUR ---
Dr Hagen has been in to see patient, new orders wrote. Pt is now asking for pain medication. Informed her I would get her some Tylenol. She then stated that she wasn't going to take that she was just going to leave. Pt then quit talking to me. Dr Hagen called and notified. I took in the AMA paperwork and pt then stated that she needed to talk to her first. She then stated that she just needed something to coat her stomach and asked if the dr was going to let her go today. Informed her that the dr wants her to stay over night so that her condition can be observed.
--- NOTE | 2020-09-04 15:47 | NUR ---
Pt somewhat more calm at this time. Stated that she just wants something to sleep. Informed her she could get something at bedtime. Pt then stated that she doesn't need any narcotics, was okay with getting maalox.
[2020-09-04 15:52] VITALS: BP 133/63; PULSE 135; TEMP 98.4
[2020-09-04 17:18] VITALS: PULSE 65
--- NOTE | 2020-09-04 17:18 | NUR ---
Pts pulse was documented at 135 about an hour ago. Rechecked about 1630 with 65 as the results. Pts mom did call up to check on patient's condition. Pt stated it was okay for me to update her. Pt informed her that her apendix had ruptured. Informed her that this was not the case and that the pt was going to have an upper GI tomorrow at noon. Pt asking for protonix. Dr Hagen was okay with me giving todays dose now. Pt is currently ordering something to eat.
--- NOTE | 2020-09-04 19:00 | NUR ---
RECEIVED CHANGE OF SHIFT REPORT FROM DAY SHIFT NURSE. PATIENT EATING SUPPER MEAL AND ADDITIONAL FOOD PLATE ORDERED BY PATIENT. PATIENT STATING SHE HAS PAIN WHEN SHE EATS WHILE PATIENT EATING FOOD ITEMS.
[2020-09-04 19:06] VITALS: BP 186/95; PULSE 78; TEMP 97.4
--- NOTE | 2020-09-04 22:03 | NUR ---
PATIENT STATING THAT SHE HAS PAIN WITH ALL DRINKING OF FLUIDS AND EATING OF ANY TYPE OF FOOD BUT WHEN OFFERED TO TAKE FLUIDS AWAY PATIENT REFUSED TO HAVE LIQUIDS TAKEN AWAY, DID FINALLY HAVE LEFT OVER SUPPER TRAY OF SALAD TAKEN AWAY, THEN STARTED TO EAT GODWIN CRACKER. PATIENT ALSO STATING SHE WANTED TO TAKE 2 MELATONIN 3 MG TABS BUT ONLY TOOK 1 MELATONIN 3 MG TAB. PATIENT RESTLESS IN BED, STATES SHE IS PASSING GAS. ABD SOFT, COMPLAINED OF PAIN TO ABD WITH HEPARIN SUBCUTANEOUS SHOT AND COMPLAINED OF PAIN WITH PERIPHERAL IV SALINE FLUSH. STATES THAT SHE COULD ALSO GO COME HAD LAY DOWN AND FROM THE ABD PAIN.
--- NOTE | 2020-09-04 23:15 | NUR ---
PATIENT RESTING WITH EYES CLOSED, WITH OBSERVED EVEN/NONLABORED BREATHING, DID NOT AWAKEN WHEN DOOR TO ROOM OPENED BY STAFF ON NURSE ROUNDS.
[2020-09-04 23:58] VITALS: BP 140/75; PULSE 76; TEMP 98.1
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
--- NOTE | 2020-09-05 01:20 | NUR ---
OBSERVED PATIENT RESTING WITH EYES CLOSED, DID NOT WAKE WHEN DOOR OPENED BY STAFF. BREATHING NONLABORED AND EVEN RATE OBSERVED BY STAFF NURSE.
[2020-09-05 02:54] VITALS: BP 164/124; PULSE 59; TEMP 97.3
--- NOTE | 2020-09-05 04:30 | NUR ---
FAILED ATTEMPTS TO RESTART IV, PATIENT STATING HER VEINS "ROLL REAL BAD... HAVE BAD VEINS" THAT PATIENT STATED WAS FROM HISTORY OF IV DRUG USE. PATIENT WANTED BREAK FROM VENIPUNCTURES, REPORTING GENERALIZED PAIN WAS CAUSING HER TO HAVE HEADACHE AND STOMACH PAIN AGAIN.
[2020-09-05 04:56] VITALS: BP 112/94; PULSE 81; TEMP 97.9
--- NOTE | 2020-09-05 05:41 | NUR ---
PATIENT REFUSED LAB DRAW THIS MORNING, [facility] STATED TO CALL LAB WHEN PATIENT IS READY TO HAVE LAB DRAWN LATER THIS MORNING.
--- NOTE | 2020-09-05 06:00 | NUR ---
ATTEMPTED X2 VENIPUNCTURES WITH PATIENT DEMANDING TO STOP IV STICK FOR NOW.
--- NOTE | 2020-09-05 07:04 | NUR ---
CHANGE OF SHIFT REPORT GIVEN TO DAY SHIFT NURSEMADAI RN.
[2020-09-05 07:15] VITALS: BP 94/62; PULSE 74; TEMP 98.2
--- NOTE | 2020-09-05 08:00 | NUR ---
Patient resting in bed at this time. Patient states that she is upset about not reciving IVF and being NPO. Discussed with patient that NPO status is due to her procedure scheduled at 1200. Reminded patient that she did not have IV access, patient recalls and states she only wants a 'professional' to place her IV. Call made to [facility], [facility] declined to attempt to place a peripherial due to numerous attmpts made yesterday in ED and advised consulting anesthesia. Anesthesia called and was advised that they would get one placed if they were able, if not, would place one immediately prior to procedure. Patient is also upset with medications, refuses PO medications, stating that they are 'not right', but is unable or unwilling to say what what is wrong with them. Assisted patient into the shower per her request.
[2020-09-05 09:03] LABS: MEAN CELL VOLUME 85 fl (80.0-100.0); MEAN CORPUSCULAR HGB CONC 31 g/dl (33.0-37.0); MEAN PLATELET VOLUME 10.4 fl (7.4-10.4); PLATELET COUNT 266 K/mm3 (130-400); RED BLOOD COUNT 3.56 M/mm3 (4.10-5.30); REDCELL DISTRIBUTION WIDTH-CV 19.3 % (11.5-14.5)
[2020-09-05 09:04] LABS: HEMATOCRIT 30.1 % (37.0-47.0); HEMOGLOBIN 9.3 g/dl (12.5-16.0); MEAN CORPUSCULAR HEMOGLOBIN 26 pg (27.0-31.0)
[2020-09-05 09:14] LABS: ALBUMIN 3.4 gm/dL (3.5-5.0); BILIRUBIN,TOTAL 0.6 mg/dL (0.0-1.0); CREATININE, serum 0.57 (0.52-1.25); POTASSIUM 4.1 mmol/L (3.4-5.0); TOTAL PROTEIN 6.5 gm/dL (6.4-8.2)
[2020-09-05 10:06] LABS: IRON,SERUM 32 ug/dL (35-150)
[2020-09-05 10:15] LABS: TOTAL IRON BINDING CAPACITY 379 ug/dL (265-497)
[2020-09-05 10:57] VITALS: BP 142/78; PULSE 63; TEMP 97.4
--- NOTE | 2020-09-05 11:50 | NUR ---
HARESH attended clinical rounds. The patient is to have an upper endoscopy today. HARESH then followed up with the patient to discuss discharge plan. The patient lives alone in an apartment in [place]. She states that her mother, sister (Antonieta, ph#[phone]), and nieces also live in [place]. She reports independence with ADLs and has a rollator. She states that she could use some help with cleaning and cooking in the home. The patient has Medicaid. HARESH informed her about [facility] [employer] and how they could screen her to try and get her some in home service approved by her insurance. The patient verbalized understanding and was interested in this. HARESH provided the patient with [facility] [employer]s contact information, along with [facility]'s Resource Guide. The patient states that her PCP is Dr. Kait Streeter. She reports that she has not met with Dr. Streeter yet, but has seen her PAs. She receives her medications from [facility] and reports no concerns with obtaining her meds. She states that she utilizes the [employer] and receives rides from neighbors for transportation. The patient does not have a DPOA-HC, but she was interested in obtaining a form. HARESH provided. The patient states that she is not . She has three children: Lesli Denson, Janice Chowdary, and Lurdes Barger. She reports that they all live in [place]. She states that she is thinking about designating her daughter, Lesli (ph#[phone]), but would like to talk to her first. She asked that HARESH give Lesli a call to update and discuss the DPOA-HC. HARESH attempted to contact Lesli. HARESH left her a voicemail. The patient plans to return home upon discharge and she states that she will pay for a taxi. HARESH attempted to contact [facility] code striper, with Dr. Streeter to confirm she is a patient there. HARESH left her a voicemail. *Discharge plan: home*
[2020-09-05 12:29] VITALS: BP 124/102; PULSE 75
[2020-09-05] MEDS ORDERED: FIORICET 325 MG1 TA1 PO (13:47)
[2020-09-05] MEDS ORDERED: FERROUSAL325 MG PO (13:51)
--- NOTE | 2020-09-05 14:55 | NUR ---
Discharge teaching completed. Discussed discharge medications, appointments, and instructions. Patient verbalized understanding. IV removed, catheter intact, hemostasis achieved. Patient denied further needs, was escorted to ED entrance by staff.
--- NOTE | 2020-09-05 15:46 | NUR ---
Zari, client support associate, with Dr. Streeter returned HARESH's phone call. Zari reports that the patient was one of Dr. Streeter's patients, but no longer is. Zari reports that Dr. Streeter terminated her as a patient this month. The patient and Dr. Streeter did not connect well. Zari reports that the patient does have a continuous pillowcase cutter through [facility]. Her name is Eugenio. HARESH updated the PA. HARESH attempted to contact Francine at [facility], to inquire if they are taking new patients. HARESH left her a voicemail. The patient is ready to d/c today. HARESH was notified that the patient is ready to leave the hospital. HARESH contacted and updated Eugenio at [facility]. Eugenio reports that they are aware that Dr. Streeter terminated the patient. Eugenio reports that they are helping the patient find a new provider and that she will follow up with the patient on Tuesday. HARESH then met with the patient to update. The patient appeared upset about Dr. Streeter terminating her as a patient. HARESH provided her with a list of the different providers in [place] and encouraged her to give them a call. The patient then asked if we could provide her with a taxi voucher. She states that she cannot afford one. HARESH inquired about her mother or sister coming to pick her up. The patient states that her mother does not get off of work until 1600 and she does not want to wait for her. The patient has Medicaid. HARESH offered to contact Medicaid and to schedule a ride back home through them. The patient declined, stating that she does not want to wait for them either. She states that she will find a ride home. The supervising floorperson notified HARESH that the patient was continuously using her call light and calling the staff names. She informed her RN that she would take the bus home. The patient is to discharge back home today. HARESH made an APS report. Intake ID#[id number].
== END 2020-09-05 14:55 | disposition home or self-care (01) ==
LOC: COL.ER 22:11 → SURG 09-04 07:06
PROVIDERS: Nurse Practitioner; Physician Assistant
DX: K56.1 Intussusception (principal); K29.50 Unspecified chronic gastritis without bleeding; K63.89 Other specified diseases of intestine; D64.9 Anemia, unspecified; I10 Essential (primary) hypertension; J44.9 Chronic obstructive pulmonary disease, unspecified; G43.909 Migraine, unspecified, not intractable, without status migrainosus; K21.9 Gastro-esophageal reflux disease without esophagitis; R29.6 Repeated falls; F17.210 Nicotine dependence, cigarettes, uncomplicated; F32.9 Major depressive disorder, single episode, unspecified; F41.9 Anxiety disorder, unspecified; Z98.84 Bariatric surgery status; Z98.51 Tubal ligation status; Z86.010 Personal history of colon polyps; Z79.899 Other long term (current) drug therapy; Z80.1 Family history of malignant neoplasm of trachea, bronchus and lung; Z80.0 Family history of malignant neoplasm of digestive organs
CPT/HCPCS: C9113; G0378; J1200; J1644; J2270; J2405; J3010; J7120; Q9967

== ENCOUNTER → 2020-09-09 | Outpatient (CLI) | payer MEDICAID ==
[~2020-09-09] MED LIST changes: +00186-0370-20 IH; +COLACE 100100 MG/CAP PO; +CYMBALTA 30MG30 MG PO; +FERROUSAL325 MG PO; +FIORICET 325 MG1 TA1 PO; +INDERAL40 MG PO; +PEN-VEE K500 MG PO; +PERIDEX (CHLOR480 ML MM; +PROTONIX 40MG T40 MG PO
== END ==
LOC: COL.PUL 07:00
DX: R06.02 Shortness of breath (principal); F17.210 Nicotine dependence, cigarettes, uncomplicated

== ENCOUNTER 2020-09-26 22:52 | Emergency (ER) | payer MEDICAID ==
[~2020-09-26] VITALS: Ht 160 cm; Wt 77.3 kg
[~2020-09-26 22:52] MED LIST changes: -PEN-VEE K500 MG PO; -PERIDEX (CHLOR480 ML MM
[2020-09-26 23:00] VITALS: TEMP 98.1
[2020-09-26] MEDS ORDERED: PEN-VEE K500 MG PO (23:09)
[2020-09-26 23:45] VITALS: BP 129/78; PULSE 87
== END 2020-09-27 00:03 | disposition home or self-care (01) ==
LOC: COL.ER 22:52
DX: K04.7 Periapical abscess without sinus (principal); F41.9 Anxiety disorder, unspecified; F17.200 Nicotine dependence, unspecified, uncomplicated; Z79.899 Other long term (current) drug therapy

== ENCOUNTER 2020-10-22 03:53 | Emergency (ER) | payer MEDICAID ==
[~2020-10-22] VITALS: Ht 157.5 cm; Wt 70.5 kg
[~2020-10-22 03:53] MED LIST changes: +PEN-VEE K500 MG PO
[2020-10-22 06:17] VITALS: TEMP 98.2
[2020-10-22 07:15] VITALS: BP 125/72; PULSE 80
== END 2020-10-22 07:18 | disposition home or self-care (01) ==
LOC: COL.ER 03:53
DX: K02.9 Dental caries, unspecified (principal); R51.9 Headache, unspecified; H53.149 Visual discomfort, unspecified; I10 Essential (primary) hypertension; Z79.899 Other long term (current) drug therapy
CPT/HCPCS: J1200; J1885; J2765; J7030

== ENCOUNTER 2020-12-13 21:01 | Emergency (ER) | payer MEDICAID ==
[~2020-12-13] VITALS: Ht 157.5 cm; Wt 72.7 kg
[2020-12-13] MEDS ORDERED: PERIDEX (CHLOR480 ML MM (21:28)
[2020-12-13] MEDS ORDERED: AMOXICILLIN 50500 MG PO (21:28)
[2020-12-13 21:32] VITALS: BP 168/83; PULSE 81; TEMP 98.5
== END 2020-12-13 21:38 | disposition home or self-care (01) ==
LOC: COL.ER 21:01
DX: S02.5XXA Fracture of tooth (traumatic), initial encounter for closed fracture (principal); K05.20 Aggressive periodontitis, unspecified; K02.9 Dental caries, unspecified; F17.210 Nicotine dependence, cigarettes, uncomplicated; X58.XXXA Exposure to other specified factors, initial encounter

== ENCOUNTER 2020-12-16 18:28 | Emergency (ER) | payer MEDICAID ==
[~2020-12-16] VITALS: Ht 157.5 cm; Wt 72.7 kg
[~2020-12-16 18:28] MED LIST changes: +PERIDEX (CHLOR480 ML MM
[2020-12-16 22:07] LABS: COLLECTION METHOD CLEAN CATCH
[2020-12-16 22:12] LABS: MUCOUS Present /lpf; PH 5 (5-8); SQUAMOUS EPITHELIAL 0-2 /hpf; URINE APPEARANCE Hazy; URINE BACTERIA None Seen /hpf; URINE BILIRUBIN Negative (NEGATIVE); URINE BLOOD Negative (NEGATIVE); URINE COLOR Yellow; URINE GLUCOSE Negative (NEGATIVE); URINE KETONE Negative (NEGATIVE); URINE LEUKOCYTE ESTERASE Negative (NEGATIVE); URINE NITRATE Negative (NEGATIVE); URINE PROTEIN(semi-quant) Negative (NEGATIVE); URINE RBC 0-2 /hpf
[2020-12-16 22:18] LABS: BASO % 0.6 % (0.0-2.0); EOS # 0.3 (0.0-0.7); EOS % 5.9 % (0-4.0); GRAN % 56.5 % (42.2-75.2); HEMATOCRIT 36.9 % (37.0-47.0); HEMOGLOBIN 11.7 g/dl (12.5-16.0); LYMPH # 1.6 (1.2-3.4); LYMPH % 30.5 % (20.0-51.0); MEAN CELL VOLUME 89 fl (80.0-100.0); MEAN CORPUSCULAR HEMOGLOBIN 28 pg (27.0-31.0); MEAN CORPUSCULAR HGB CONC 32 g/dl (33.0-37.0); MEAN PLATELET VOLUME 10.8 fl (7.4-10.4); MONO # 0.3 (0.1-0.6); MONO % 6.3 % (1.7-9.3); PLATELET COUNT 297 K/mm3 (130-400); RED BLOOD COUNT 4.16 M/mm3 (4.10-5.30); REDCELL DISTRIBUTION WIDTH-CV 14.9 % (11.5-14.5)
[2020-12-16 22:36] LABS: ALANINE AMINOTRANSFERASE 19 U/L (0-55); ALBUMIN 3.5 gm/dL (3.5-5.0); ALCOHOL(ethanol),MEDICAL < 10 mg/dL (0-10); ALKALINE PHOSPHATASE 63 U/L (0-750); ANION GAP 11 mmol/L; AST,SGOT 25 U/L (5-34); BILIRUBIN,TOTAL 0.4 mg/dL (0.2-1.2); BLOOD UREA NITROGEN 19 mg/dL (10-20); CALCIUM 9.1 mg/dL (8.4-10.2); CARBON DIOXIDE 21 mEq/L (22-29); CHLORIDE 108 mmol/L (98-107); CREATININE, serum 0.88 mg/dL (0.57-1.11); GLUCOSE 256 mg/dL (70-99); POTASSIUM 3.7 mmol/L (3.5-4.5); SALICYLATE < 5.0 mg/dL (15.0-30.0); SODIUM 140 mmol/L (136-145); TOTAL PROTEIN 6.4 gm/dL (6.2-8.1)
[2020-12-16 23:37] LABS: TRICYCLIC ANTIDEPRESS URINE NEGATIVE
[2020-12-17 11:41] VITALS: BP 159/77; TEMP 97.6
[2020-12-17 16:10] VITALS: PULSE 60
== END 2020-12-17 16:10 ==
LOC: COL.ER 18:28
PROVIDERS: Nurse Practitioner
DX: F15.10 Other stimulant abuse, uncomplicated (principal); R45.6 Violent behavior; F41.9 Anxiety disorder, unspecified; D64.9 Anemia, unspecified; R73.9 Hyperglycemia, unspecified; Z79.899 Other long term (current) drug therapy; Z20.822 Contact with and (suspected) exposure to COVID-19
CPT/HCPCS: J1200; J1630; J2060